=== PATIENT | male | born 1940 | race Caucasian/White ===

== ENCOUNTER → 2024-06-14 09:32 | Outpatient (REF) | payer MEDICARE, OTHER, SELFPAY | LOC: RAD 09:32 | PROVIDERS: ATTENDING PHYSICIAN Orthopaedic Surgery; FAMILY PHYSICIAN Internal Medicine | DX: S82.002D Unspecified fracture of left patella, subsequent encounter for closed fracture with routine healing (principal) | CPT/HCPCS: 78315; A9503 ==